=== PATIENT | male | born 1995 | race Caucasian/White ===

== ENCOUNTER 2018-05-14 13:23 | Emergency (ER) | payer OTHER ==
[2018-05-14] MEDS: DIPHTH/TET/ACEL PERTUSS (ADULT) 0.5 ML VIAL IM* (14:14)
== END 2018-05-14 14:40 | disposition home or self-care (01) ==
LOC: FTE 13:23
DX: S61.112A Laceration without foreign body of left thumb with damage to nail, initial encounter (principal); W26.8XXA Contact with other sharp object(s), not elsewhere classified, initial encounter; Y92.9 Unspecified place or not applicable; Z23 Encounter for immunization; Z87.891 Personal history of nicotine dependence
CPT/HCPCS: 90471; 90715; 99283-25

== ENCOUNTER 2018-08-27 11:06 | Emergency (ER) | payer OTHER | END 2018-08-27 12:05 | disposition home or self-care (01) | LOC: FTE 11:06 | DX: S01.01XA Laceration without foreign body of scalp, initial encounter (principal); V00.131A Fall from skateboard, initial encounter; Y92.9 Unspecified place or not applicable | CPT/HCPCS: 12001; 99282-25 ==

== ENCOUNTER 2018-09-03 16:42 | Emergency (ER) | payer OTHER | END 2018-09-03 19:26 | disposition home or self-care (01) | LOC: FTE 16:42 | DX: Z48.02 Encounter for removal of sutures (principal) | CPT/HCPCS: 99281 ==

== ENCOUNTER 2018-11-17 18:25 | Emergency (ER) | payer SELFPAY, OTHER | END 2018-11-17 21:15 | disposition left against medical advice (07) | LOC: FTE 21:15 | DX: Z53.21 Procedure and treatment not carried out due to patient leaving prior to being seen by health care provider (principal) ==